=== PATIENT | female | born 1975 | race Caucasian/White ===

== ENCOUNTER 2018-10-28 01:01 | Emergency (ER) | payer OTHER ==
[2018-10-28 01:45] LABS: PLATELET COUNT 225 10^3/uL (150-400)
--- NOTE | 2018-10-28 02:36 | EDPHY ---
H & P Stated Complaint: heart racing and arms and legs feel heavy Time Seen by Provider: 10/28/18 01:14 HPI/ROS: HPI The patient presents with palpitations which awoke her from sleep at about 12: 40 a.m. This morning. She awoke and felt that her heart was racing continuously. She got up and walked around and her symptoms continued. She felt a heavy sensation throughout both of her arms. She had trembling of her legs. She does not have any chest pain or shortness of breath. 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 She has not had her thyroid checked in several years. She is not on any new medications.. REVIEW OF SYSTEMS 10 systems were reviewed and negative with the exception of the elements mentioned in the history of present illness. PMHx: Status post appendectomy Soc Hx: here with her PHYSICAL General Appearance: Alert, no distress Eyes: Pupils equal and round no pallor or injection ENT, Mouth: Mucous membranes moist Respiratory: There are no retractions, lungs are clear to auscultation Cardiovascular: Regular rate and rhythm Gastrointestinal: Abdomen is soft and non-tender, no masses, bowel sounds normal Neurological: A&O, moves all extremities, 5/5 strength in her lower extremities which is symmetric Skin: Warm and dry, no rashes Musculoskeletal: Neck is supple non tender Extremities: symmetrical, full range of motion Psychiatric: Patient is oriented X 3, there is no agitation Source: Patient Exam Limitations: No limitations - Personal History LMP (Females 10-55): 1-7 Days Ago Tetanus Vaccine Date: < 10 years - Medical/Surgical History Hx Asthma: No Hx Chronic Respiratory Disease: No Hx Diabetes: No Hx Cardiac Disease: No Hx Renal Disease: No Hx Cirrhosis: No Hx Alcoholism: No Hx HIV/AIDS: No Hx Splenectomy or Spleen Trauma: No Other PMH: appy - Social History Smoking Status: Former smoker Constitutional: Initial Vital Signs Temperature (C) 36.5 C 10/28/18 01:03 Heart Rate 81 10/28/18 01:03 Respiratory Rate 16 10/28/18 01:03 Blood Pressure 119/74 10/28/18 01:03 O2 Sat (%) 95 10/28/18 01:03 O2 Delivery Mode Room Air Allergies/Adverse Reactions: soy Allergy (Verified 10/28/18 01:05) Home Medications: Medication Instructions Recorded NK [No Known Home Meds] 07/20/15 Medical Decision Making - Diagnostics EKG Interpretation: EKG: Complete interpretation has been separately recorded in the [facility] archive. Summary impression: Normal sinus rhythm Differential Diagnosis: 43-year-old female who awoke from sleep with palpitations tonight associated with heavy sensation of both arms and weakness of legs. Here, she is in a normal sinus rhythm with heart rate in the 60s to 70s. Physical exam is unremarkable. EKG is normal. She had troponin, CBC, chemistry testing which is all unremarkable. I have reviewed her telemetry and she has had no events, no PACs or PVCs. TSH is pending at this time. Differential diagnosis includes anxiety attack, arrhythmia, hyperthyroidism. - Data Points Laboratory Results: Laboratory Results 10/28/18 01:40 10/28/18 01:40 10/28/18 10/28/18 10/28/18 01:49 01:40 01:40 WBC RBC Hgb Hct MCV MCH MCHC RDW Plt Count MPV Neut % (Auto) Lymph % (Auto) [place] % (Auto) Eos % (Auto) Baso % (Auto) Nucleat RBC Rel Count Absolute Neuts (auto) Absolute Lymphs (auto) Absolute Monos (auto) Absolute Eos (auto) Absolute Basos (auto) Absolute Nucleated RBC Immature Gran % Immature Gran # Sodium 140 mEq/L mEq/L (135-145) Potassium 3.6 mEq/L mEq/L (3.5-5.2) Chloride 107 mEq/L mEq/L (97-110) Carbon Dioxide 24 mEq/l mEq/l (22-31) Anion Gap 9 mEq/L mEq/L (6-14) BUN 11 mg/dL mg/dL (7-23) Creatinine 0.6 mg/dL mg/dL (0.6-1.0) Estimated GFR > 60 Glucose 89 mg/dL mg/dL (70-100) Calcium 8.9 mg/dL mg/dL (8.5-10.4) Total Bilirubin 1.1 mg/dL mg/dL (0.1-1.4) AST 32 IU/L IU/L (14-46) ALT 19 IU/L IU/L (9-52) Alkaline Phosphatase 42 IU/L IU/L (38-126) POC Troponin I 0.00 ng/mL ng/mL (0.00-0.08) Total Protein 6.4 g/dL g/dL (6.3-8.2) Albumin 4.0 g/dL g/dL (3.5-5.0) TSH 4.040 uIU/mL uIU/mL (0.465-4.680) 10/28/18 01:40 WBC 7.57 10^3/uL 10^3/uL (3.80-9.50) RBC 4.53 10^6/uL 10^6/uL (4.18-5.33) Hgb 13.6 g/dL g/dL (12.6-16.3) Hct 38.1 % % (38.0-47.0) MCV 84.1 fL fL (81.5-99.8) MCH 30.0 pg pg (27.9-34.1) MCHC 35.7 g/dL g/dL (32.4-36.7) RDW 12.3 % % (11.5-15.2) Plt Count 225 10^3/uL 10^3/uL (150-400) MPV 10.3 fL fL (8.7-11.7) Neut % (Auto) 57.5 % % (39.3-74.2) Lymph % (Auto) 31.7 % % (15.0-45.0) [place] % (Auto) 7.4 % % (4.5-13.0) Eos % (Auto) 2.9 % % (0.6-7.6) Baso % (Auto) 0.4 % % (0.3-1.7) Nucleat RBC Rel Count 0.0 % % (0.0-0.2) Absolute Neuts (auto) 4.35 10^3/uL 10^3/uL (1.70-6.50) Absolute Lymphs (auto) 2.40 10^3/uL 10^3/uL (1.00-3.00) Absolute Monos (auto) 0.56 10^3/uL 10^3/uL (0.30-0.80) Absolute Eos (auto) 0.22 10^3/uL 10^3/uL (0.03-0.40) Absolute Basos (auto) 0.03 10^3/uL 10^3/uL (0.02-0.10) Absolute Nucleated RBC 0.00 10^3/uL 10^3/uL (0-0.01) Immature Gran % 0.1 % % (0.0-1.1) Immature Gran # 0.01 10^3/uL 10^3/uL (0.00-0.10) Sodium Potassium Chloride Carbon Dioxide Anion Gap BUN Creatinine Estimated GFR Glucose Calcium Total Bilirubin AST ALT Alkaline Phosphatase POC Troponin I Total Protein Albumin TSH Point of Care Test Results: Chemistry 10/28/18 01:49 POC Troponin I 0.00 ng/mL ng/mL (0.00-0.08) Departure - Departure Disposition: Home, Routine, Self-Care Clinical Impression: Palpitations Condition: Good Instructions: Heart Palpitations (ED) Additional Instructions: The cause of your heart palpitations is not entirely clear. I recommend you monitor your symptoms at home. We have ordered a test of your thyroid that has not return during her time in the emergency department. We will call you at home if this test is positive and if you need further testing. Referrals: Ibeth Champion MD [Primary Care Provider] - As per Instructions
[2018-10-28 02:56] VITALS: BP 96/74
--- NOTE | 2018-10-28 06:11 | CPEKG ---
Test Reason : OPEN Blood Pressure : / mmHG Vent. Rate : 067 BPM Atrial Rate : 067 BPM P-R Int : 134 ms QRS Dur : 085 ms QT Int : 410 ms P-R-T Axes : 007 073 055 degrees QTc Int : 433 ms Sinus rhythm Confirmed by Jeni Oliveros ([id number]) on 10/28/2018 6:11:33 AM Referred By: Jeni Oliveros Confirmed By:Jeni Oliveros
== END 2018-10-28 02:56 | disposition home or self-care (01) ==
DX: R00.2 Palpitations (principal)
CPT/HCPCS: 84484-ER